=== PATIENT | male | born 1985 | race African-American/Black ===

== ENCOUNTER 2016-12-14 03:04 | Emergency (ER) | payer OTHER ==
[~2016-12-14 03:04] MED LIST: ATARAX PO; DAYQUIL; ERYTHROMYC3.5 GM OPT OP; FLEXERIL10 MG PO; HYDROCHLOROTHIA25 MG PO; IBUPROFEN800 MG PO; INDOMETHACIN25 MG PO; LISINOPRIL PO; LISINOPRIL10 MG; LISINOPRIL10 MG PO; MAGIC MOUTHWASH PO; METOPROLOL TAR25 MG PO; NAPROSYN-EC500 MG PO; NAPROXEN PO; NO MEDICATIONS; OMEPRAZOLE20 M1 PO; PREDNISONE PO; PRILOSEC PO; PRINIVIL10 MG PO; ROBAXIN 750750 M1 PO; VOLTAREN50 MG PO
== END 2016-12-14 03:05 | disposition home or self-care (01) ==
LOC: SED 03:04
DX: L50.9 Urticaria, unspecified (principal); I10 Essential (primary) hypertension
CPT/HCPCS: 99282

== ENCOUNTER → 2017-03-12 | Outpatient (CLI) | payer OTHER ==
[~2017-03-12] MED LIST changes: +ATORVASTATIN CA10 MG; +MOTRIN20 MG/ML PO
--- NOTE | ~2017-03-12 | CR181 ---
[facility] A Service of [facility] & [facility] RADIOLOGY TEXT RESULTS PATIENT: EDWARD KENDRICK JR LOCATION: [facility] : 81 UNIT #: [id number] AGE: [address]: REINA MARQUEZ SEX: M ORDER DR: [id number] [facility] [address] [place], [place] [address] [id number] O MR#: [id number] Acc #: [id number] NAME: EDWARD KENDRICK : 1985 SEX: M STUDY DATE/TIME: 03/12/2017 1156 UNIT: [facility] ROOM: STUDY DESCRIPTION: CR Lumbar Spine 2 or 3 Views Attending Physician: Ranjeet Lombardi Ordering Physician: Ranjeet Lombardi Primary Care Physician: No Primary Care Physician MEDICAL IMAGING REPORT This report is preliminary unless electronic signature is present EXAM Lumbar spine series, 03/12/2017, 1156 hours. CLINICAL HISTORY 31-year-old man with low back pain radiating to left leg for 9 months. Patient states he hurt his back at work. COMPARISON Lumbar spine series 09/02/2015. CT abdomen and pelvis 05/01/2016. FINDINGS AP, lateral views, and a coned lateral view of the lumbosacral junction were performed. 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 There are pars defects posteriorly at L5 without malalignment or fracture. These are present on prior CT 05/01/2016 and not acute. IMPRESSION Normal alignment. Patient appears to have partial transitional anatomy with some sacralization of the L5 vertebra. There are pars defects bilaterally at this L5 vertebra without disc height loss or subluxation. These pars defects are present on CT 05/01/2016 and likely present on prior lumbar series 09/02/2015. These are not acute. Dictated by... Maria C Rooney M.D. THIS IS AN ELECTRONICALLY VERIFIED REPORT Maria C Rooney M.D. at 03/13/2017 6:58 PM LAVERNM/clifton [facility] A Service of [facility] & [facility] RADIOLOGY TEXT RESULTS PATIENT: EDWARD KENDRICK JR [id number] : [birth year] UNIT #: [id number] AGE: [address]: REINA MARQUEZ SEX: M ORDER DR: TD: 03/13/2017 07:54 JOB #: [id number] MEDICAL IMAGING REPORT Page 1 of 1 COPY
== END | disposition home or self-care (01) ==
LOC: CRAD 11:45
DX: M54.5 Low back pain (principal)
CPT/HCPCS: 72100

== ENCOUNTER 2017-04-10 12:44 | Emergency (ER) | payer OTHER ==
--- NOTE | ~2017-04-10 | CR142 ---
[facility]. [facility] A Service of [facility] & [facility] RADIOLOGY TEXT RESULTS PATIENT: EDWARD KENDRICK JR LOCATION: SED : 81 UNIT #: [id number] AGE: [address]: GENEVIEVE TOLBERT SEX: M ORDER DR: [id number] [place] [id number] E MR#: [id number] Acc #: [id number] NAME: EWDARD KENDRICK JR : 1985 SEX: M STUDY DATE/TIME: 04/10/2017 13:15 UNIT: SED ROOM: STUDY DESCRIPTION: CR Hand Min 3 Views Rt Attending Physician: Genevieve Tolbert Aprn Ordering Physician: Sravanthi Faria M.D. Primary Care Physician: Primary Care Physician No MEDICAL IMAGING REPORT This report is preliminary unless electronic signature is present. EXAM Right hand 3 views HISTORY Hand pain today after injury playing basketball. FINDINGS AP, lateral, and oblique projections of the hand show good mineralization with normal carpal, metacarpal, and phalangeal anatomy without indication of fracture, dislocation, or soft tissue radiopaque foreign body. IMPRESSION Normal hand. Dictated by... Barron Albarado M.D. THIS IS AN ELECTRONICALLY VERIFIED REPORT Barron Albarado M.D. at 04/11/2017 5:33 PM GERARDO/charlee TD: 04/11/2017 00:03 JOB #: [id number] MEDICAL IMAGING REPORT Page 1 of 1
[~2017-04-10 12:44] MED LIST changes: -ATORVASTATIN CA10 MG; -MOTRIN20 MG/ML PO
[2017-04-10] MEDS ORDERED: ATORVASTATIN CA10 MG (13:06)
[2017-04-10] MEDS ORDERED: MOTRIN20 MG/ML PO (14:19)
== END 2017-04-10 14:22 | disposition home or self-care (01) ==
LOC: SED 12:44
DX: S69.91XA Unspecified injury of right wrist, hand and finger(s), initial encounter (principal); I10 Essential (primary) hypertension; E78.00 Pure hypercholesterolemia, unspecified; Z79.899 Other long term (current) drug therapy; W22.8XXA Striking against or struck by other objects, initial encounter; Y92.009 Unspecified place in unspecified non-institutional (private) residence as the place of occurrence of the external cause
CPT/HCPCS: 29125; 73130; 99283